=== PATIENT | male | born 1985 | race Caucasian/White ===

== ENCOUNTER 2019-12-17 01:02 | Emergency (ER) | payer OTHER, SELFPAY ==
--- NOTE | ~2019-12-17 | XR_ITS ---
EXAMINATION: XR chest 2V DATE: 12/17/2019 01:59 INDICATION: Tachycardia. Palpitations. Nausea and dizziness. TECHNIQUE: PA and lateral views of the chest were obtained. COMPARISON: None FINDINGS: The lungs are clear with no focal airspace opacities, pulmonary edema, pleural effusion or pneumothor ax. The cardiomediastinal silhouette is normal. Visualized bones and soft tissues are unremarkable. IMPRESSION: 1. No acute cardiopulmonary disease. Reviewed, dictated and finalized at location A.
[2019-12-17 01:02] VITALS: BP 153/93; PULSE 101; RESP 13; TEMP 36.5; O2SAT 100
--- NOTE | 2019-12-17 01:14 | ECG_ITS ---
Measurements Intervals [place] Rate: 92 P: 74 KS: 160 QRS: 29 QRSD: 118 T: 62 QT: 351 QTc: 435 Interpretive Statements SINUS RHYTHM INCOMPLETE RIGHT BUNDLE BRANCH BLOCK BORDERLINE ECG Electronically Signed On 12-17-2019 7:09:06 CDT by Adams Guerin D.O.
[2019-12-17 01:50] LABS: Basophils Percent Auto 0.5 % (0.2-1.2); Eosinophils Absolute Auto 0.1 K/mm3 (0-0.3); Eosinophils Percent Auto 1.2 % (0-4.4); Hematocrit 41.2 % (42.0-52.0); Immature Granulocyte Absolute 0.01 K/mm3 (0.00-0.031); Immature Granulocyte Percent A 0.2 % (0-0.5); Lymphocytes Absolute Auto 1.42 K/mm3 (0.9-3.2); Lymphocytes Percent Auto 33.4 % (18.3-44.2); Mean Corpuscular HGB Conc 36.4 g/dl (32-36); Mean Corpuscular Hemoglobin 32.1 pg (26-34); Mean Corpuscular Volume 88.2 fl (80-100); Mean Platelet Volume 9.9 fl (7.4-10.4); Monocytes Absolute Auto 0.4 K/mm3 (0.1-0.6); Monocytes Percent Auto 9.2 % (2.6-8.5); Neutrophils Absolute Auto 2.4 K/mm3 (1.3-6.7); Neutrophils Percent Auto 55.5 % (45.5-73.1); Platelet Count Result 166 k/mm3 (150-375); Red Blood Count 4.67 M/mm3 (4.6-6.20); Red Cell Distribution Width 11.4 % (11.5-14.5); White Blood Count 4.3 K/mm3 (4.5-10.0)
[2019-12-17 02:02] LABS: Blood Urea Nitrogen 16 mg/dL (9-20); Calcium 9.5 mg/dL (8.4-10.2); Carbon Dioxide 26 mmol/L (22-30); Chloride 100 mmol/L (98-107); Estimated CRCL calculation 105 ml/min; Estimated Glomerular Filt Rate > 60; Glucose 101 mg/dL (75-110); Potassium 3.3 mmol/L (3.4-5.0); Sodium 137 mmol/L (137-145)
[2019-12-17 02:13] LABS: Troponin I < 0.012 ng/mL (0.000-0.034)
[2019-12-17 02:59] VITALS: BP 112/75; PULSE 77; RESP 17; O2SAT 95
--- NOTE | 2019-12-17 03:33 | ED.ARRPALP ---
HPI - Arrhythmia/Palpitations General Chief Complaint: Arrhythmia/Palpitations Stated Complaint: dizziness/nausea/palpitations Time Seen by Provider: 12/17/19 01:29 History of Present Illness HPI narrative: Patient is a 34-year-old male who presents the ER with palpitations. Reports he was lying in bed when he felt his heart racing. Last about 2 hours. Associated with feeling flushed and nauseated and lightheaded. Patient reports he gets episodes like this that are intermittent. 1 time last week his heart rate was up in the 160s. Reports today his heart rate was in the 130s. Patient suffers from a neurologic abnormality and sees neurologist at [place]. They have been working him up for the symptoms and he is recently been on high-dose steroids that are dosed once week. Patient does not drink caffeine essentially no alcohol as it exacerbates his symptoms. He does have history of vertigo which is felt different in the past. No alleviating factors other than time. Has not been worked up for pots, attempting to find a physician who does tilt table testing. Related Data Allergies Allergy/AdvReac Type Severity Reaction Status Date / Time No Known Allergies Allergy Verified 12/17/19 01:11 Review of Systems Review of Systems: All systems reviewed & are unremarkable except as noted in HPI and below Constitutional: Constitutional: Denies chills, Denies fever(s) and Denies weakness ENT: Denies nasal congestion and Denies sore throat Cardiovascular: Cardiovascular: Denies chest pain and Reports rapid heart rate Respiratory: Respiratory: Denies cough, Reports dyspnea and Denies wheezing Gastrointestinal: Gastrointestinal: Denies abdominal pain, Reports nausea and Denies vomiting Musculoskeletal: Musculoskeletal: Denies back pain, Denies joint swelling and Denies muscle cramps Neurologic: Reports dizziness, Denies syncope, Denies headache(s) and Denies numbness PMFSH Past Medical History Medical History (Updated 12/17/19 @ 03:39 by Anival Cannon MD) GERD (gastroesophageal reflux disease) Recurrent genital HSV (herpes simplex virus) infection Small fiber neuropathy Surgical History Surgical History (Updated 12/17/19 @ 03:35 by Anival Cannon MD) No pertinent past surgical history Social History Social History Smoking status: Never smoker Alcohol intake: current Drinks per week: 1 Substance use: never Gender identity (if verbalized by the patient): Male Exam Narrative: Exam Narrative: GENERAL: Well-appearing, well-nourished, and in no acute distress. HEAD: Normocephalic, atraumatic. ENT: Mucous membranes moist. CHEST: Clear to auscultation. No respiratory distress. HEART: Regular rate and rhythm. No murmur heard. Normal peripheral pulses. ABDOMEN: Soft, nontender, nondistended. EXTREMITIES: Normal range of motion. No edema. Right calf atrophy that is chronic. SKIN: Warm, dry, no rash. NEURO: Alert and oriented x3. PSYCH: Normal mood and affect. Course Course Emergency Course: Symptom-free at this time. Unremarkable evaluation. Follow-up with his primary doctor. Vital Signs Vital signs: Vital Signs Temperature 97.7 F 12/17/19 01:02 Pulse Rate 101 H 12/17/19 01:02 Respiratory Rate 13 12/17/19 01:02 Blood Pressure 153/93 H 12/17/19 01:02 Pulse Oximetry 100 12/17/19 01:02 Temperature 97.7 F 12/17/19 01:02 Pulse Rate 77 12/17/19 02:59 Respiratory Rate 17 12/17/19 02:59 Blood Pressure 112/75 12/17/19 02:59 Pulse Oximetry 95 12/17/19 02:59 MDM - Arrhythmia/Palpitations Lab Data Result diagrams: 12/17/19 01:43 12/17/19 01:43 Labs: Lab Results 12/17/19 12/17/19 Range/Units 01:43 01:43 WBC 4.3 L (4.5-10.0) K/mm3 RBC 4.67 (4.6-6.20) M/mm3 Hgb 15.0 (14.0-18.0) g/dL Hct 41.2 L (42.0-52.0) % MCV 88.2 (80-100) fl MCH 32.1 (26-34) pg MC
[2019-12-17 04:00] VITALS: BP 116/79; PULSE 74; RESP 14; TEMP 36.2; O2SAT 98
== END 2019-12-17 04:02 | disposition home or self-care (01) ==
PROVIDERS: Emergency Provider Emergency Medicine
DX: R00.2 Palpitations (principal); K21.9 Gastro-esophageal reflux disease without esophagitis; G62.9 Polyneuropathy, unspecified; I45.10 Unspecified right bundle-branch block
CPT/HCPCS: 36415; 71046; 80048; 83735; 84484; 85025; 93005; 99284